=== PATIENT | male | born 1980 | race Caucasian/White ===

== ENCOUNTER 2019-03-21 15:06 | Outpatient (CLI) | payer MEDICAID, SELFPAY ==
--- NOTE | 2019-03-21 15:16 | XR_ITS ---
WS: [id number] LUMBAR SPINE FLEXION AND EXTENSION TECHNIQUE: 3 views of the lumbar spine: Lateral neutral, flexion, and extension views. CLINICAL INFORMATION: LOW BACK PAIN COMPARISON: None. FINDINGS: Normal lumbar alignment on the neutral view. No instability on the flexion and extension views. Disc space heights and vertebral body heights well -preserved. XR/XR lumbar spine f/e only [id number] IMPRESSION: No instability on flexion-extension
--- NOTE | 2019-03-21 15:16 | MR_ITS ---
WS: [id number] MRI LUMBAR SPINE NONCONTRAST TECHNIQUE: Sagittal T1, T2 and STIR imaging. Axial T1 and T2 imaging. CLINICAL INFORMATION: LOW BACK PAIN COMPARISON: None. FINDINGS: Normal lumbar alignment. No acute compression. No high-grade central canal stenosis. Mild disc bulgin g L4-L5 and L5-S1. Tiny annular fissure L5-S1. L1-L2: Normal. L2-L3: Normal. L3-L4: No significant disc bulging. Spinal canal and foramen are patent. L4-L5: Mild annular bulging. Spinal canal and foramen are patent. Mild facet arthropathy. L5-S1: Right pericentral disc protrusion with a small annular tear. Impingement traversing right S1 n erve root. Narrowing of the right subarticular recess. Spinal canal is patent. Mild facet arthropathy . Visualized pelvic bony structures: Normal. Paravertebral soft tissues: Normal. MR/MR lumbar spine wo con* [id number] IMPRESSION: 1. Mild lumbar curve. No acute compression. No significant central canal steno sis. 2. Right pericentral disc protrusion L5-S1 with slight impingement traversing right S1 nerve root. Recommend correlation for S1 nerve root symptoms. Small an nular tear at this level. 3. Mild annular bulging L4-5 without significant spinal canal or foraminal sage rowing.
== END 2019-03-21 15:07 | disposition home or self-care (01) ==
LOC: RADWPI 15:12
PROVIDERS: PCP Internal Medicine; Visit Provider Nurse Practitioner
DX: M51.27 Other intervertebral disc displacement, lumbosacral region (principal); M51.26 Other intervertebral disc displacement, lumbar region; M54.5 Low back pain
CPT/HCPCS: 72120; 72148